=== PATIENT | female | born 2000 | race Caucasian/White ===

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

== ENCOUNTER 2018-02-10 16:50 | Emergency (ER) | payer MEDICAID ==
[~2018-02-10] VITALS: Ht 175.3 cm; Wt 93.0 kg
[~2018-02-10 16:50] MED LIST changes: +PROC-8 PO; +SUMA25TA35 PO
[2018-02-10] MEDS ORDERED: ondansetron/PF 4mg/2ml inj IV ONE (17:20)
[2018-02-10] MEDS ORDERED: normal saline 1000ML IV soln IVB ONE (17:20)
[2018-02-10 17:30] LABS: URINE HCG NEGATIVE (NEG)
[2018-02-10 17:31] LABS: CLARITY,URINE CLEAR (Clear); COLOR,URINE YELLOW (Yellow); PROTEIN,URINE NEGATIVE (Neg); UA COLLECTION TYPE VOIDED
[2018-02-10 17:32] LABS: BASOPHILS % (AUTO) 0.6 % (0-1); EOSINOPHILS % (AUTO) 0.4 % (0-6); HEMATOCRIT 44.9 % (35.0-45.0); LYMPHOCYTES # (AUTO) 2.5 X10'3 (1.1-4.8); LYMPHOCYTES % (AUTO) 39.7 % (21-51); MEAN CORPUSCULAR HEMOGLOBIN 31.8 PG (27.0-31.0); MEAN CORPUSCULAR HGB CONC 33.5 % (33.0-36.5); MEAN CORPUSCULAR VOLUME 95.1 FL (78-98); MONOCYTES # (AUTO) 0.4 X10'3 (0-0.9); NEUTROPHILS # (AUTO) 3.4 X10'3 (1.8-7.7); NEUTROPHILS % (AUTO) 53.3 % (42-75); PLATELET COUNT 374 X10'3 (140-440); RED BLOOD COUNT 4.73 X10'6 (4.20-5.60); RED CELL DISTRIBUTION WIDTH 13.2 % (11.5-14.5); WHITE BLOOD COUNT 6.3 X10'3 (4.5-11.0)
[2018-02-10 17:32] LABS: GLUCOSE, URINE NEGATIVE (Neg); KETONES,URINE NEGATIVE (Neg); LEUKOCYTE ESTERASE ,URINE NEGATIVE (Neg); NITRITES, URINE NEGATIVE (Neg); OCCULT BLOOD,URINE TRACE-INTACT (Neg); UROBILINOGEN,URINE 0.2 E.U/dL (0.2-1.0)
[2018-02-10 17:41] LABS: URINE AMPHETAMINE SCREEN NEGATIVE (Neg); URINE BARBITUATE SCREEN NEGATIVE (Neg); URINE BENZODIAZEPINES SCREEN NEGATIVE (Neg); URINE CANNABINOID SCREEN NEGATIVE (Neg); URINE COCAINE SCREEN NEGATIVE (Neg); URINE METHADONE SCREEN NEGATIVE (Neg); URINE OPIATE SCREEN NEGATIVE (Neg); URINE PHENCYCLIDINE SCREEN NEGATIVE (Neg)
[2018-02-10 17:43] LABS: BACTERIA,URINE 2+ /HPF (Neg); MUCUS STRANDS NONE SEEN /LPF (Neg); RBC,URINE 0-2 /HPF (0-2); SQUAMOUS EPITHELIAL CELL,UR MODERATE /LPF (FEW); WBC,URINE NONE SEEN /HPF (0-4)
[2018-02-10 17:45] LABS: ALANINE AMINOTRANSFERASE 46 U/L (12-78); ALBUMIN 3.6 G/DL (3.4-5.0); ALKALINE PHOSPHATASE 73 IU/L (20-180); ANION GAP 17 (8-16); ASPARTATE AMINO TRANSFERASE 63 U/L (10-37); BILIRUBIN,TOTAL 0.6 MG/DL (0.1-1.0); BLOOD UREA NITROGEN 9 MG/DL (7-18); BUN/CREATININE RATIO 10.8 (6.6-38.0); CALCIUM 7.8 MG/DL (8.5-10.1); CHLORIDE 104 MMOL/L (99-107); CREATININE 0.83 MG/DL (0.40-0.90); GLUCOSE 85 MG/DL (70-104); POTASSIUM 3.7 MMOL/L (3.5-5.1); SODIUM 140 MMOL/L (135-145); TOTAL CARBON DIOXIDE 19.4 MMOL/L (24-32); TOTAL PROTEIN 7.3 G/DL (6.4-8.2); eGFR 89 ML/MIN
--- NOTE | 2018-02-10 17:55 | NUR ---
Poison control contacted, received following recommendations from pharmacist "Robert": Optimize electrolyte levels for prolonged QTC interval by giving 1 gram of magnesium and goal of potasium is = or greater than 4. Repeat EKG in four hours Redraw and eval pts anion gap, electrolytes and liver function in four hours. Cardiac monitoring for next 6 hours and monitor for respiratory depression and tachycardia.
[2018-02-10 17:58] LABS: ETHANOL 0.415 GM/DL (0.0-0.010)
--- NOTE | 2018-02-10 18:08 | NUR ---
Reported recommendations to TI Salas and update ROOPA Molina.
[2018-02-10] MEDS ORDERED: magnesium 2GM in 50ml NS 50 ML IV ONE (18:10)
[2018-02-10] MEDS ORDERED: thiamine 100mg/ml 2ml inj. IV ONE (18:10)
[2018-02-10] MEDS ORDERED: potassium Cl oral solution 20 MEQ/15 ML PO ONE (18:10)
[2018-02-10] MEDS ORDERED: folic acid 1mg/0.2ml inj IV ONE (18:10)
--- NOTE | 2018-02-10 18:25 | NUR ---
TELE-PSYCH CONSULT INITIATED.
[2018-02-10] MEDS ORDERED: famotidine/PF 10 mg/ml inj IV ONE (18:30)
[2018-02-10 18:51] LABS: ACETAMINOPHEN < 2.0 UG/ML (10-30)
--- NOTE | 2018-02-10 18:51 | NUR ---
Telepsych consult in progress at bedside.
[2018-02-10 21:27] LABS: ALANINE AMINOTRANSFERASE 43 U/L (12-78); ALBUMIN 3.2 G/DL (3.4-5.0); ALBUMIN/GLOBULIN RATIO 1.1 (1.1-1.5); ALKALINE PHOSPHATASE 63 IU/L (20-180); ANION GAP 17 (8-16); ASPARTATE AMINO TRANSFERASE 59 U/L (10-37); BILIRUBIN,TOTAL 0.4 MG/DL (0.1-1.0); BLOOD UREA NITROGEN 6 MG/DL (7-18); BUN/CREATININE RATIO 8.7 (6.6-38.0); CALCIUM 7.1 MG/DL (8.5-10.1); CHLORIDE 109 MMOL/L (99-107); CREATININE 0.69 MG/DL (0.40-0.90); GLUCOSE 95 MG/DL (70-104); POTASSIUM 4.8 MMOL/L (3.5-5.1); SODIUM 143 MMOL/L (135-145); TOTAL CARBON DIOXIDE 17.5 MMOL/L (24-32); TOTAL PROTEIN 6.1 G/DL (6.4-8.2); eGFR > 90 ML/MIN
--- NOTE | 2018-02-10 23:45 | NUR ---
MOVED FROM ROOM 16, PLACED IN GREEN GOWN AND ORIENTED TO ROOM.
--- NOTE | 2018-02-11 00:07 | NUR ---
Packet faxed to [facility].
[2018-02-11 05:30] VITALS: BP 126/78
[2018-02-11] MEDS ORDERED: normal saline 1000ML IV soln IVB ONE (06:35)
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
[2018-02-11] MEDS ORDERED: phenobarbital inj 260 MG in normal saline 100ml IV soln 99 ML IV ONE (07:30)
--- NOTE | 2018-02-11 08:50 | NUR ---
Pt feeling a little better post medication and fluids. Continue to monitor.
--- NOTE | 2018-02-11 10:14 | NUR ---
Patient on the phone with her mother. No distress observed.
== END 2018-02-11 14:18 | disposition home or self-care (01) ==
LOC: ER 16:51
DX: T43.222A Poisoning by selective serotonin reuptake inhibitors, intentional self-harm, initial encounter (principal); F10.129 Alcohol abuse with intoxication, unspecified; R45.851 Suicidal ideations; F10.10 Alcohol abuse, uncomplicated; G43.909 Migraine, unspecified, not intractable, without status migrainosus; F41.9 Anxiety disorder, unspecified; F12.90 Cannabis use, unspecified, uncomplicated; F32.9 Major depressive disorder, single episode, unspecified; Z79.899 Other long term (current) drug therapy; Y90.9 Presence of alcohol in blood, level not specified; Y92.89 Other specified places as the place of occurrence of the external cause
CPT/HCPCS: 36415; 80053; 80305; 80320; 80329; 81001; 81025; 84443; 85025; 93005; 96365; 96367; 96375; 99291; J2405; J2560; J3411; J3475; J3490; J7030

== ENCOUNTER 2018-10-20 22:42 | Emergency (ER) | payer MEDICAID ==
[~2018-10-20] VITALS: Ht 175.3 cm; Wt 79.5 kg
--- NOTE | 2018-10-20 22:44 | NUR ---
kristi flores - nataly eli
[2018-10-20 23:08] LABS: BASOPHILS # (AUTO) 0.1 X10'3 (0-0.2); BASOPHILS % (AUTO) 0.7 % (0-1); EOSINOPHILS # (AUTO) 0.1 X10'3 (0-0.9); EOSINOPHILS % (AUTO) 0.7 % (0-6); HEMATOCRIT 41.8 % (35.0-45.0); HEMOGLOBIN 14.4 g/dl (12.0-16.0); LYMPHOCYTES # (AUTO) 3.7 X10'3 (1.1-4.8); LYMPHOCYTES % (AUTO) 26.9 % (21-51); MEAN CORPUSCULAR HEMOGLOBIN 33.4 PG (27.0-31.0); MEAN CORPUSCULAR HGB CONC 34.5 g/dL (33.0-36.5); MEAN CORPUSCULAR VOLUME 96.8 FL (78-98); MEAN PLATELET VOLUME 6.5 FL (7.4-10.4); MONOCYTES # (AUTO) 0.8 X10'3 (0-0.9); MONOCYTES % (AUTO) 6.2 % (2-12); NEUTROPHILS # (AUTO) 8.9 X10'3 (1.8-7.7); NEUTROPHILS % (AUTO) 65.5 % (42-75); PLATELET COUNT 362 X10'3 (140-440); RED BLOOD COUNT 4.32 X10'6 (4.20-5.60); RED CELL DISTRIBUTION WIDTH 13.5 % (11.5-14.5); WHITE BLOOD COUNT 13.6 X10'3 (4.5-11.0)
[2018-10-20 23:13] LABS: COLOR,URINE YELLOW (Yellow); GLUCOSE, URINE NEGATIVE (Neg); KETONES,URINE NEGATIVE (Neg); LEUKOCYTE ESTERASE ,URINE NEGATIVE (Neg); NITRITES, URINE NEGATIVE (Neg); OCCULT BLOOD,URINE NEGATIVE (Neg); PROTEIN,URINE NEGATIVE (Neg); URINE HCG NEGATIVE (NEG); UROBILINOGEN,URINE 0.2 E.U/dL (0.2-1.0)
[2018-10-20 23:18] LABS: CLARITY,URINE CLEAR (Clear); UA COLLECTION TYPE CLN CATCH MIDSTREAM
[2018-10-20 23:20] LABS: ALANINE AMINOTRANSFERASE 61 U/L (12-78); ALBUMIN 3.2 G/DL (3.4-5.0); ALBUMIN/GLOBULIN RATIO 0.7 (1.1-1.5); ALKALINE PHOSPHATASE 110 IU/L (20-180); ANION GAP 16 (8-16); ASPARTATE AMINO TRANSFERASE 57 U/L (10-37); BILIRUBIN,TOTAL 0.2 MG/DL (0.1-1.0); BLOOD UREA NITROGEN 9 MG/DL (7-18); BUN/CREATININE RATIO 9.2 (6.6-38.0); CALCIUM 8.2 MG/DL (8.5-10.1); CHLORIDE 107 MMOL/L (99-107); CREATININE 0.98 MG/DL (0.40-0.90); GLUCOSE 100 MG/DL (70-104); POTASSIUM 3.4 MMOL/L (3.5-5.1); SODIUM 144 MMOL/L (135-145); TOTAL CARBON DIOXIDE 21.4 MMOL/L (24-32); TOTAL PROTEIN 7.7 G/DL (6.4-8.2); eGFR 72 ML/MIN
[2018-10-20 23:22] LABS: ACETAMINOPHEN < 2.0 UG/ML (10-30)
--- NOTE | 2018-10-20 23:22 | NUR ---
PT A CUP OF ICE WATER REQUESTED, PT CALM,QUIET,COOPERATIVE.
[2018-10-20 23:47] LABS: URINE AMPHETAMINE SCREEN NEGATIVE (Neg); URINE BARBITUATE SCREEN NEGATIVE (Neg); URINE BENZODIAZEPINES SCREEN NEGATIVE (Neg); URINE CANNABINOID SCREEN NEGATIVE (Neg); URINE COCAINE SCREEN NEGATIVE (Neg); URINE METHADONE SCREEN NEGATIVE (Neg); URINE OPIATE SCREEN NEGATIVE (Neg); URINE PHENCYCLIDINE SCREEN NEGATIVE (Neg)
--- NOTE | 2018-10-20 23:51 | NUR ---
PT REPORTED NOT BEING ABLE TO BREATHE, PT RR 32. PT COACHED TO BREATHE IN THROUGH NOSE AND OUT MOUTH AND RR REDUCED TO NORMAL RATE. ASKED IF PT TAKES ANYTHING FOR ANXIETY ATTACKS AND PT STATES NO.
--- NOTE | 2018-10-21 00:20 | NUR ---
PT PARENTS ALLOWED TO VISIT FOR 10 MINUTES. PT COOPERATIVE BEFORE, DURING AND AFTER.
--- NOTE | 2018-10-21 02:18 | NUR ---
PT EXPRESSED ANXIETY AND GENERAL RESTLESSNESS. DISCUSSED PT STATUS WITH RIYA WALTERS; NEW ORDER RECEIVED FOR LIBRIUM.
[2018-10-21] MEDS ORDERED: chlordiazePOXIDE 25mg capsule PO ONE (02:20)
--- NOTE | 2018-10-21 06:32 | NUR ---
PT IS SLEEPING ON LEFT SIDE, RESPIRATIONS SPONTANEOUS, EVEN AND UNLABORED, NO S/S OF DISTRESS, DISOMFORT OR AGITATION AT THIS TIME.
--- NOTE | 2018-10-21 08:38 | NUR ---
PT SITTING UP IN BED, PT IS CALM AND COOPERATIVE, PT REPORTS SHE FEEL THIRSTY, GAVE PT A PITCHER OF ICE WATER, DR LIMON INFORMED OF PT RECENT COUGH AND CHESTWALL PAIN, ORDERS TO FOLLOW, WILL UPDATE PT VS.
[2018-10-21] MEDS ORDERED: NO HOME MEDS (08:39)
--- NOTE | 2018-10-21 08:49 | NUR ---
PT REPORTING 10/10 PAIN, RECEIVED VERBAL ORDER FROM DR LIMON 600 MG PO IBUPROFEN ONCE NOW.
[2018-10-21] MEDS ORDERED: ibuprofen 200mg tablet PO ONE (08:50)
[2018-10-21] MEDS ORDERED: thiamine 100mg tablet PO ONE (11:30)
[2018-10-21] MEDS ORDERED: multivitamins, therapeutics tablet PO SCH (11:30)
--- NOTE | 2018-10-21 11:30 | NUR ---
DR BOSSFS INFORMED OF PT 1/ VODKA DAILY DRINKING, NO ETOH WITHDRAW PROTOCOL, VERBAL ORDER FOR MULT VIT AND THIAMINE DAILY
--- NOTE | 2018-10-21 11:33 | NUR ---
PT MOVED FROM BED 15 TO BED 22 BY STUDENT ACCOUNTS MANAGER, CALLED AND GAVE SBAR REPORT TO DARLENE BLAS
--- NOTE | 2018-10-21 11:35 | NUR ---
Made comfortable in Bed 22. Mother at bedside. Presents as shaky and anxious.
--- NOTE | 2018-10-21 13:00 | NUR ---
Served lunch tray. Picked at her food. Stated "This is not what I eat." Mother remains at bedside.
--- NOTE | 2018-10-21 13:30 | NUR ---
Sha from [facility] at bedside to evaluate patient for 5150 criteria.
--- NOTE | 2018-10-21 14:20 | NUR ---
Patient does not meet criteria for 5150 status. In depth discharge plan reviewed with patient and mother.
--- NOTE | 2018-10-21 15:00 | NUR ---
Patient discharged to home ambulatory, with all her personal belongings, accompanied by mother. Will follow-up with AA sponsor, [facility] and locate a primary care provider.
[2018-10-21 17:45] VITALS: BP 130/88
== END 2018-10-21 15:00 | disposition home or self-care (01) ==
LOC: ER 22:42
DX: S41.112A Laceration without foreign body of left upper arm, initial encounter (principal); S71.111A Laceration without foreign body, right thigh, initial encounter; F10.129 Alcohol abuse with intoxication, unspecified; F79 Unspecified intellectual disabilities; G43.909 Migraine, unspecified, not intractable, without status migrainosus; F41.9 Anxiety disorder, unspecified; Z79.899 Other long term (current) drug therapy; X78.8XXA Intentional self-harm by other sharp object, initial encounter; Y93.89 Activity, other specified; Y92.89 Other specified places as the place of occurrence of the external cause; Y99.8 Other external cause status
CPT/HCPCS: 36415; 71045; 80053; 80305; 80320; 80329; 81003; 81025; 85025; 99285

== ENCOUNTER 2019-04-03 14:32 | Emergency (ER) | payer MEDICAID ==
[~2019-04-03] VITALS: Ht 177.8 cm; Wt 118.0 kg
[~2019-04-03 14:32] MED LIST changes: -LEVO1.5T12 PO; +NO HOME MEDS; -PROC-8 PO; -PROCHC RC; -SUMA25TA35 PO
[2019-04-03 16:47] LABS: BASOPHILS % (AUTO) 0.5 % (0-1); EOSINOPHILS % (AUTO) 0.2 % (0-6); HEMATOCRIT 41.4 % (35.0-45.0); HEMOGLOBIN 14.3 g/dl (12.0-16.0); LYMPHOCYTES # (AUTO) 2.5 X10'3 (1.1-4.8); MEAN CORPUSCULAR HEMOGLOBIN 36.1 PG (27.0-31.0); MEAN CORPUSCULAR HGB CONC 34.6 g/dL (33.0-36.5); MEAN CORPUSCULAR VOLUME 104.3 FL (78-98); MEAN PLATELET VOLUME 7.1 FL (7.4-10.4); MONOCYTES # (AUTO) 0.4 X10'3 (0-0.9); MONOCYTES % (AUTO) 5.5 % (2-12); NEUTROPHILS # (AUTO) 4.9 X10'3 (1.8-7.7); NEUTROPHILS % (AUTO) 61.8 % (42-75); PLATELET COUNT 332 X10'3 (140-440); RED BLOOD COUNT 3.97 X10'6 (4.20-5.60); WHITE BLOOD COUNT 7.9 X10'3 (4.5-11.0)
[2019-04-03 16:55] LABS: PARTIAL THROMBOPLASTIN TIME 29 SECONDS (22-32)
[2019-04-03 17:00] LABS: ALANINE AMINOTRANSFERASE 111 U/L (12-78); ALBUMIN 3.8 G/DL (3.4-5.0); ALBUMIN/GLOBULIN RATIO 1.1 (1.1-1.5); ALKALINE PHOSPHATASE 63 IU/L (20-180); ANION GAP 18 (8-16); ASPARTATE AMINO TRANSFERASE 151 U/L (10-37); BILIRUBIN,TOTAL 0.8 MG/DL (0.1-1.0); BLOOD UREA NITROGEN 6 MG/DL (7-18); BUN/CREATININE RATIO 6.9 (6.6-38.0); CALCIUM 8.9 MG/DL (8.5-10.1); CHLORIDE 104 MMOL/L (99-107); CREATININE 0.87 MG/DL (0.40-0.90); GLUCOSE 101 MG/DL (70-104); LIPASE 119 U/L (73-393); MAGNESIUM 2.3 MG/DL (1.5-2.4); POTASSIUM 3.9 MMOL/L (3.5-5.1); SODIUM 140 MMOL/L (135-145); TOTAL CARBON DIOXIDE 18.5 MMOL/L (24-32); TOTAL PROTEIN 7.4 G/DL (6.4-8.2); eGFR 83 ML/MIN
[2019-04-03] MEDS ORDERED: normal saline 1000ML IV soln IVB ONE (17:55)
[2019-04-03 18:32] VITALS: BP 123/80
[2019-04-03] MEDS ORDERED: LORazepam 2 mg/ml vial IV ONE (18:40)
[2019-04-03 18:49] LABS: CLARITY,URINE CLOUDY (Clear); COLOR,URINE STRAW (Yellow); GLUCOSE, URINE NEGATIVE (Neg); KETONES,URINE NEGATIVE (Neg); LEUKOCYTE ESTERASE ,URINE TRACE (Neg); NITRITES, URINE NEGATIVE (Neg); OCCULT BLOOD,URINE LARGE (Neg); PH,URINE 5.5 (4.8-8.0); PROTEIN,URINE NEGATIVE (Neg); URINE HCG NEGATIVE (NEG); UROBILINOGEN,URINE 0.2 E.U/dL (0.2-1.0)
[2019-04-03 18:50] LABS: UA COLLECTION TYPE CLN CATCH MIDSTREAM
[2019-04-03 18:56] LABS: BACTERIA,URINE 1+ /HPF (Neg); RBC,URINE 0-2 /HPF (0-2); SQUAMOUS EPITHELIAL CELL,UR MODERATE /LPF (FEW)
[2019-04-03 19:01] LABS: URINE AMPHETAMINE SCREEN NEGATIVE (Neg); URINE BARBITUATE SCREEN NEGATIVE (Neg); URINE BENZODIAZEPINES SCREEN NEGATIVE (Neg); URINE CANNABINOID SCREEN NEGATIVE (Neg); URINE COCAINE SCREEN NEGATIVE (Neg); URINE METHADONE SCREEN NEGATIVE (Neg); URINE OPIATE SCREEN NEGATIVE (Neg); URINE PHENCYCLIDINE SCREEN NEGATIVE (Neg)
[2019-04-03 19:03] LABS: TROPONIN I < 0.04 NG/ML (0.0-0.05)
[2019-04-03] MEDS ORDERED: ondansetron 4mg rapidly disintigrating tab PO ONE (19:30)
== END 2019-04-03 19:41 | disposition home or self-care (01) ==
LOC: ER 14:33
DX: I47.1 Supraventricular tachycardia (principal); F10.10 Alcohol abuse, uncomplicated; F41.9 Anxiety disorder, unspecified; F32.9 Major depressive disorder, single episode, unspecified; Y90.0 Blood alcohol level of less than 20 mg/100 ml
CPT/HCPCS: 36415; 71045; 80053; 80305; 80320; 81001; 81025; 83690; 83735; 84484; 85025; 85610; 85730; 87088; 93005; 96374; 99285; J2060; J7030

== ENCOUNTER 2019-04-24 23:56 | Emergency (ER) | payer MEDICAID ==
[~2019-04-24] VITALS: Ht 177.8 cm; Wt 77.3 kg
[2019-04-25] MEDS ORDERED: AMOX-422 PO (00:16)
[2019-04-25 00:32] VITALS: BP 131/86
== END 2019-04-25 00:34 | disposition home or self-care (01) ==
LOC: ER 23:57
DX: H66.91 Otitis media, unspecified, right ear (principal); F41.9 Anxiety disorder, unspecified; F32.9 Major depressive disorder, single episode, unspecified; Z79.2 Long term (current) use of antibiotics
CPT/HCPCS: 99283

== ENCOUNTER 2019-06-16 17:55 | Emergency (ER) | payer MEDICAID ==
[~2019-06-16] VITALS: Ht 177.8 cm; Wt 72.7 kg
[2019-06-16] MEDS ORDERED: ondansetron/PF 4mg/2ml inj IV ONE (18:05)
[2019-06-16] MEDS ORDERED: morphine 4 MG/ML inj SYRINge IV ONE (18:05)
[2019-06-16] MEDS ORDERED: ACET-3068 PO (18:36)
[2019-06-16 19:05] VITALS: BP 131/59
== END 2019-06-16 19:07 | disposition home or self-care (01) ==
LOC: ER 17:56
DX: S89.92XA Unspecified injury of left lower leg, initial encounter (principal); G43.909 Migraine, unspecified, not intractable, without status migrainosus; F41.9 Anxiety disorder, unspecified; F32.9 Major depressive disorder, single episode, unspecified; F10.10 Alcohol abuse, uncomplicated; Z79.899 Other long term (current) drug therapy; W01.0XXA Fall on same level from slipping, tripping and stumbling without subsequent striking against object, initial encounter; Y93.89 Activity, other specified; Y92.828 Other wilderness area as the place of occurrence of the external cause; Y99.8 Other external cause status
CPT/HCPCS: 73560; 96374; 96375; 99284; J2270; J2405

== ENCOUNTER 2019-08-28 20:54 | Emergency (ER) | payer MEDICAID ==
[~2019-08-28] VITALS: Ht 177.8 cm; Wt 81.8 kg
--- NOTE | 2019-08-28 21:29 | NUR ---
pt reports new onset of chest pain to the left side going to her back during assessment. ekg ordered. pt additionaly describes weakness as moving up her legs and now at her left hand. pt denies any medical hx. symptoms began 3 days ago.
[2019-08-28 21:33] LABS: BASOPHILS # (AUTO) 0.1 X10'3 (0-0.2); BASOPHILS % (AUTO) 1.3 % (0-1); EOSINOPHILS # (AUTO) 0.2 X10'3 (0-0.9); EOSINOPHILS % (AUTO) 2.5 % (0-6); HEMOGLOBIN 13.4 g/dl (12.0-16.0); LYMPHOCYTES # (AUTO) 1.3 X10'3 (1.1-4.8); LYMPHOCYTES % (AUTO) 22.3 % (21-51); MEAN CORPUSCULAR HEMOGLOBIN 38.3 PG (27.0-31.0); MEAN CORPUSCULAR HGB CONC 33.5 g/dL (33.0-36.5); MEAN CORPUSCULAR VOLUME 114.2 FL (78-98); MEAN PLATELET VOLUME 7.7 FL (7.4-10.4); MONOCYTES # (AUTO) 0.3 X10'3 (0-0.9); MONOCYTES % (AUTO) 4.6 % (2-12); NEUTROPHILS # (AUTO) 4.2 X10'3 (1.8-7.7); NEUTROPHILS % (AUTO) 69.3 % (42-75); PLATELET COUNT 261 X10'3 (140-440); RED BLOOD COUNT 3.51 X10'6 (4.20-5.60); RED CELL DISTRIBUTION WIDTH 18.1 % (11.5-14.5)
[2019-08-28 21:48] LABS: ANISOCYTOSIS 2+; PLATELET ESTIMATE NORMAL
[2019-08-28 21:53] LABS: ALANINE AMINOTRANSFERASE 212 U/L (12-78); ALBUMIN 3.8 G/DL (3.4-5.0); ALBUMIN/GLOBULIN RATIO 0.9 (1.1-1.5); ALKALINE PHOSPHATASE 121 IU/L (46-116); ANION GAP 13 (8-16); ASPARTATE AMINO TRANSFERASE 437 U/L (10-37); BILIRUBIN,TOTAL 3.2 MG/DL (0.1-1.0); BLOOD UREA NITROGEN 3 MG/DL (7-18); BUN/CREATININE RATIO 3.4 (6.6-38.0); CALCIUM 9.3 MG/DL (8.5-10.1); CHLORIDE 102 MMOL/L (99-107); CREATININE 0.89 MG/DL (0.40-0.90); GLUCOSE 109 MG/DL (70-104); LIPASE 344 U/L (73-393); POTASSIUM 3.3 MMOL/L (3.5-5.1); SODIUM 139 MMOL/L (135-145); TOTAL CARBON DIOXIDE 24.5 MMOL/L (24-32); TOTAL PROTEIN 8.2 G/DL (6.4-8.2); eGFR 80 ML/MIN
[2019-08-29 00:33] LABS: CLARITY,URINE CLEAR (Clear); COLOR,URINE YELLOW (Yellow); GLUCOSE, URINE NEGATIVE (Neg); KETONES,URINE NEGATIVE (Neg); LEUKOCYTE ESTERASE ,URINE SMALL (Neg); NITRITES, URINE NEGATIVE (Neg); OCCULT BLOOD,URINE LARGE (Neg); PH,URINE 6.5 (4.8-8.0); PROTEIN,URINE NEGATIVE (Neg)
[2019-08-29 00:36] LABS: UA COLLECTION TYPE CLN CATCH MIDSTREAM
[2019-08-29 00:41] LABS: AMORPHOUS URATES 2+; BACTERIA,URINE 1+ /HPF (Neg); RBC,URINE 0-2 /HPF (0-2); SQUAMOUS EPITHELIAL CELL,UR MODERATE /LPF (FEW); WBC,URINE 0-4 /HPF (0-4)
[2019-08-29 00:50] LABS: URINE HCG NEGATIVE (NEG)
--- NOTE | 2019-08-29 01:39 | NUR ---
Received report from Romelia Smith RN. Dr. Owen reevaluating pt and ordering Tele Neuro.
--- NOTE | 2019-08-29 01:40 | NUR ---
PT DC READY AND UNABLE TO PASS GAIT TEST. WITNESSED BY MD ALISSON REEVALUATED AND ORDERED A NEURO TELE FOR FURTHER ASSESSMENT OF BILATERAL LOWER EXTREMITY WEAKNESS.
--- NOTE | 2019-08-29 01:40 | NUR ---
I HAD THE MD WATCH HOW SHE WALKS. HE ASSESSED HER.
[2019-08-29 01:52] LABS: ETHANOL < 0.010 GM/DL (0.0-0.010)
--- NOTE | 2019-08-29 02:17 | NUR ---
TELE NEURO COMPLETED. FAXED REPORT JUST RECEIVED.
[2019-08-29 02:40] LABS: URINE AMPHETAMINE SCREEN NEGATIVE (Neg); URINE BARBITUATE SCREEN NEGATIVE (Neg); URINE BENZODIAZEPINES SCREEN NEGATIVE (Neg); URINE CANNABINOID SCREEN NEGATIVE (Neg); URINE COCAINE SCREEN NEGATIVE (Neg); URINE METHADONE SCREEN NEGATIVE (Neg); URINE OPIATE SCREEN NEGATIVE (Neg); URINE PHENCYCLIDINE SCREEN NEGATIVE (Neg)
--- NOTE | 2019-08-29 02:51 | NUR ---
DR. WALTERS DISCUSSING PTS CASE POSS ADMISSION WITH DR. IVORY. DECISION MADE TO TRANSFER PT TO HOSPITAL WITH NEURO SERVICE RECOMMENDED BY TELE NEURO.
--- NOTE | 2019-08-29 03:05 | NUR ---
PT WITH STABLE VS AND SCHULTZ PAIN OF 4 OUT OF 10.
[2019-08-29 03:07] VITALS: BP 142/103
--- NOTE | 2019-08-29 05:06 | NUR ---
report given to bola sauer , rn on neuro floor. pt with stable vs. awaiting transport time confirmation.
--- NOTE | 2019-08-29 05:46 | NUR ---
Pt awaiting transport to [facility]. Report has been called.
== END 2019-08-29 06:28 | disposition short-term general hospital (02) ==
LOC: ER 20:55
DX: M62.81 Muscle weakness (generalized) (principal); R42 Dizziness and giddiness; R20.0 Anesthesia of skin; G43.909 Migraine, unspecified, not intractable, without status migrainosus; F41.9 Anxiety disorder, unspecified; F32.9 Major depressive disorder, single episode, unspecified; F10.10 Alcohol abuse, uncomplicated; Y90.0 Blood alcohol level of less than 20 mg/100 ml
CPT/HCPCS: 36415; 80053; 80305; 80320; 81001; 81025; 83690; 84443; 85025; 87088; 93005; 99285

== ENCOUNTER 2019-10-23 18:55 | Emergency (ER) | payer MEDICAID ==
[~2019-10-23] VITALS: Ht 177.8 cm; Wt 90.9 kg
[2019-10-23] MEDS ORDERED: metoclopramide 5 mg/ml inj IV ONE (20:35)
[2019-10-23] MEDS ORDERED: normal saline 1000ML IV soln IVB ONE ×2 (20:35→22:00)
[2019-10-23] MEDS ORDERED: diphenhydrAMINE 50 mg/ml inj IV ONE (20:35)
[2019-10-23 21:07] LABS: ETHANOL 0.411 GM/DL (0.0-0.010)
[2019-10-23 21:38] LABS: BASOPHILS # (AUTO) 0.1 X10'3 (0-0.2); EOSINOPHILS # (AUTO) 0.1 X10'3 (0-0.9); EOSINOPHILS % (AUTO) 0.7 % (0-6); MONOCYTES # (AUTO) 0.3 X10'3 (0-0.9)
[2019-10-23 21:39] LABS: BASOPHILS % (AUTO) 0.9 % (0-1); HEMATOCRIT 44.9 % (35.0-45.0); HEMOGLOBIN 15.3 g/dl (12.0-16.0); LYMPHOCYTES # (AUTO) 4.7 X10'3 (1.1-4.8); LYMPHOCYTES % (AUTO) 62.9 % (21-51); MEAN CORPUSCULAR HEMOGLOBIN 35.7 PG (27.0-31.0); MEAN CORPUSCULAR HGB CONC 34.1 g/dL (33.0-36.5); MEAN CORPUSCULAR VOLUME 104.7 FL (78-98); MEAN PLATELET VOLUME 6.9 FL (7.4-10.4); MONOCYTES % (AUTO) 4.7 % (2-12); NEUTROPHILS # (AUTO) 2.3 X10'3 (1.8-7.7); NEUTROPHILS % (AUTO) 30.8 % (42-75); PLATELET COUNT 458 X10'3 (140-440); RED BLOOD COUNT 4.29 X10'6 (4.20-5.60); RED CELL DISTRIBUTION WIDTH 15.6 % (11.5-14.5); WHITE BLOOD COUNT 7.5 X10'3 (4.5-11.0)
[2019-10-23 21:46] LABS: ALANINE AMINOTRANSFERASE 111 U/L (12-78); ALBUMIN/GLOBULIN RATIO 0.9 (1.1-1.5); ALKALINE PHOSPHATASE 85 IU/L (46-116); ANION GAP 16 (8-16); ASPARTATE AMINO TRANSFERASE 82 U/L (10-37); BILIRUBIN,TOTAL 0.5 MG/DL (0.1-1.0); BLOOD UREA NITROGEN 5 MG/DL (7-18); BUN/CREATININE RATIO 5.8 (6.6-38.0); CALCIUM 8.8 MG/DL (8.5-10.1); CHLORIDE 104 MMOL/L (99-107); CREATININE 0.86 MG/DL (0.40-0.90); GLUCOSE 103 MG/DL (70-104); POTASSIUM 3.6 MMOL/L (3.5-5.1); SODIUM 142 MMOL/L (135-145); TOTAL CARBON DIOXIDE 21.8 MMOL/L (24-32); TOTAL PROTEIN 8.4 G/DL (6.4-8.2); eGFR 83 ML/MIN
[2019-10-23 22:00] LABS: ANISOCYTOSIS 1+; PLATELET ESTIMATE NORMAL; TOTAL CELLS COUNTED 100
[2019-10-23 23:18] LABS: URINE HCG NEGATIVE (NEG)
[2019-10-23 23:19] LABS: CLARITY,URINE SLIGHTLY CLOUDY (Clear); COLOR,URINE YELLOW (Yellow); GLUCOSE, URINE NEGATIVE (Neg); KETONES,URINE NEGATIVE (Neg); LEUKOCYTE ESTERASE ,URINE NEGATIVE (Neg); NITRITES, URINE NEGATIVE (Neg); OCCULT BLOOD,URINE NEGATIVE (Neg); PH,URINE 5.5 (4.8-8.0); PROTEIN,URINE NEGATIVE (Neg); UROBILINOGEN,URINE 0.2 E.U/dL (0.2-1.0)
[2019-10-23 23:20] LABS: UA COLLECTION TYPE CLN CATCH MIDSTREAM
[2019-10-23 23:24] LABS: RBC,URINE NONE SEEN /HPF (0-2); WBC,URINE NONE SEEN /HPF (0-4)
[2019-10-23 23:25] LABS: BACTERIA,URINE FEW /HPF (Neg); SQUAMOUS EPITHELIAL CELL,UR FEW /LPF (FEW)
--- NOTE | 2019-10-23 23:25 | NUR ---
PATIENT WAS ABLE TO AMBULATE TO RESTROOM WITHOUT ASSISTANCE. GAIT WAS STEADY AND CONTROLLED. URINE SAMPLE PROVIDED AT THIS TIME
[2019-10-24 01:26] VITALS: BP 126/100
== END 2019-10-24 01:30 | disposition home or self-care (01) ==
LOC: ER 18:56
DX: F10.129 Alcohol abuse with intoxication, unspecified (principal); R00.2 Palpitations; R06.02 Shortness of breath; G43.909 Migraine, unspecified, not intractable, without status migrainosus; F41.9 Anxiety disorder, unspecified; F32.9 Major depressive disorder, single episode, unspecified; Y90.0 Blood alcohol level of less than 20 mg/100 ml
CPT/HCPCS: 36415; 80053; 80320; 81001; 81025; 82948; 85007; 85025; 93005; 96361; 96374; 96375; 99285; J1200; J2765; J7030

== ENCOUNTER 2020-05-24 22:37 | Emergency (ER) | payer MEDICAID ==
[~2020-05-24] VITALS: Ht 172.7 cm; Wt 104.5 kg
[2020-05-24 22:43] VITALS: BP 131/77
[2020-05-24 23:42] LABS: BASOPHILS % (AUTO) 0.7 % (0-1); EOSINOPHILS # (AUTO) 0.1 X10'3 (0-0.9); EOSINOPHILS % (AUTO) 0.8 % (0-6); HEMATOCRIT 44.3 % (35.0-45.0); HEMOGLOBIN 14.6 g/dl (12.0-16.0); LYMPHOCYTES # (AUTO) 3.3 X10'3 (1.1-4.8); LYMPHOCYTES % (AUTO) 47.9 % (21-51); MEAN CORPUSCULAR HEMOGLOBIN 29.4 PG (27.0-31.0); MEAN CORPUSCULAR HGB CONC 32.9 g/dL (33.0-36.5); MEAN CORPUSCULAR VOLUME 89.5 FL (78-98); MEAN PLATELET VOLUME 6.4 FL (7.4-10.4); MONOCYTES # (AUTO) 0.3 X10'3 (0-0.9); NEUTROPHILS # (AUTO) 3.2 X10'3 (1.8-7.7); NEUTROPHILS % (AUTO) 46.6 % (42-75); PLATELET COUNT 428 X10'3 (140-440); RED BLOOD COUNT 4.95 X10'6 (4.20-5.60); RED CELL DISTRIBUTION WIDTH 14.2 % (11.5-14.5); WHITE BLOOD COUNT 6.9 X10'3 (4.5-11.0)
[2020-05-24 23:56] LABS: ALANINE AMINOTRANSFERASE 38 U/L (12-78); ALBUMIN 3.6 G/DL (3.4-5.0); ALBUMIN/GLOBULIN RATIO 0.9 (1.1-1.5); ALKALINE PHOSPHATASE 98 IU/L (46-116); ANION GAP 15 (8-16); ASPARTATE AMINO TRANSFERASE 39 U/L (10-37); BILIRUBIN,TOTAL 0.3 MG/DL (0.1-1.0); BLOOD UREA NITROGEN 10 MG/DL (7-18); BUN/CREATININE RATIO 13.2 (6.6-38.0); CALCIUM 8.2 MG/DL (8.5-10.1); CHLORIDE 105 MMOL/L (99-107); CREATININE 0.76 MG/DL (0.40-0.90); GLUCOSE 87 MG/DL (70-104); POTASSIUM 3.9 MMOL/L (3.5-5.1); SODIUM 140 MMOL/L (135-145); TOTAL CARBON DIOXIDE 20.5 MMOL/L (24-32); TOTAL PROTEIN 7.6 G/DL (6.4-8.2); eGFR > 90 ML/MIN
[2020-05-24 23:58] LABS: ETHANOL 0.326 GM/DL (0.0-0.010)
[2020-05-25] MEDS ORDERED: ONDA8TAB13 PO (00:48)
[2020-05-25] MEDS ORDERED: GABA-530 PO (00:48)
== END 2020-05-25 01:11 | disposition home or self-care (01) ==
LOC: ER 22:38
DX: F10.129 Alcohol abuse with intoxication, unspecified (principal); F32.9 Major depressive disorder, single episode, unspecified; F41.9 Anxiety disorder, unspecified; G43.909 Migraine, unspecified, not intractable, without status migrainosus; F12.90 Cannabis use, unspecified, uncomplicated; F17.200 Nicotine dependence, unspecified, uncomplicated; R00.0 Tachycardia, unspecified; Y90.9 Presence of alcohol in blood, level not specified
CPT/HCPCS: 36415; 80053; 80320; 85025; 93005; 99284

== ENCOUNTER 2020-05-28 05:56 | Emergency (ER) | payer MEDICAID ==
[~2020-05-28] VITALS: Ht 180.3 cm; Wt 108.8 kg
[~2020-05-28 05:56] MED LIST changes: +GABA-530 PO; +ONDA8TAB13 PO
[2020-05-28 06:14] VITALS: BP 121/81
== END 2020-05-28 07:12 | disposition home or self-care (01) ==
LOC: ER 05:56
DX: Z02.89 Encounter for other administrative examinations (principal); F10.129 Alcohol abuse with intoxication, unspecified; G43.909 Migraine, unspecified, not intractable, without status migrainosus; F41.9 Anxiety disorder, unspecified; F32.9 Major depressive disorder, single episode, unspecified; F12.90 Cannabis use, unspecified, uncomplicated; Z72.89 Other problems related to lifestyle; Z79.899 Other long term (current) drug therapy; Y90.9 Presence of alcohol in blood, level not specified
CPT/HCPCS: 99281

== ENCOUNTER 2020-06-01 11:07 | Emergency (ER) | payer MEDICAID ==
[~2020-06-01] VITALS: Ht 180.3 cm; Wt 112.0 kg
[2020-06-01 11:25] VITALS: BP 124/78
== END 2020-06-01 14:25 | disposition home or self-care (01) ==
LOC: ER 11:08
DX: R42 Dizziness and giddiness (principal); T42.6X5A Adverse effect of other antiepileptic and sedative-hypnotic drugs, initial encounter; R07.89 Other chest pain; G43.909 Migraine, unspecified, not intractable, without status migrainosus; F41.9 Anxiety disorder, unspecified; F32.9 Major depressive disorder, single episode, unspecified; F12.90 Cannabis use, unspecified, uncomplicated; Z72.89 Other problems related to lifestyle; Z79.899 Other long term (current) drug therapy; Y92.89 Other specified places as the place of occurrence of the external cause
CPT/HCPCS: 93005; 99283

== ENCOUNTER 2020-06-28 08:18 | Emergency (ER) | payer MEDICAID ==
[~2020-06-28] VITALS: Ht 180.3 cm; Wt 90.9 kg
[2020-06-28] MEDS ORDERED: normal saline 1000ML IV soln IVB ONE (08:50)
[2020-06-28 09:55] LABS: BASOPHILS # (AUTO) 0.1 X10'3 (0-0.2); BASOPHILS % (AUTO) 0.8 % (0-1); EOSINOPHILS # (AUTO) 0.1 X10'3 (0-0.9); EOSINOPHILS % (AUTO) 1.5 % (0-6); HEMATOCRIT 45.9 % (35.0-45.0); HEMOGLOBIN 15.6 g/dl (12.0-16.0); LYMPHOCYTES # (AUTO) 3.1 X10'3 (1.1-4.8); LYMPHOCYTES % (AUTO) 47.4 % (21-51); MEAN CORPUSCULAR HEMOGLOBIN 30.3 PG (27.0-31.0); MEAN CORPUSCULAR HGB CONC 34.1 g/dL (33.0-36.5); MEAN PLATELET VOLUME 6.6 FL (7.4-10.4); MONOCYTES # (AUTO) 0.3 X10'3 (0-0.9); NEUTROPHILS % (AUTO) 45.3 % (42-75); PLATELET COUNT 448 X10'3 (140-440); RED BLOOD COUNT 5.15 X10'6 (4.20-5.60); RED CELL DISTRIBUTION WIDTH 14.1 % (11.5-14.5); WHITE BLOOD COUNT 6.6 X10'3 (4.5-11.0)
[2020-06-28 10:10] LABS: ALANINE AMINOTRANSFERASE 43 U/L (12-78); ALBUMIN 3.7 G/DL (3.4-5.0); ALBUMIN/GLOBULIN RATIO 0.9 (1.1-1.5); ALKALINE PHOSPHATASE 99 IU/L (46-116); ANION GAP 11 (8-16); ASPARTATE AMINO TRANSFERASE 39 U/L (10-37); BILIRUBIN,TOTAL 0.3 MG/DL (0.1-1.0); BLOOD UREA NITROGEN 10 MG/DL (7-18); BUN/CREATININE RATIO 11.9 (6.6-38.0); CALCIUM 8.5 MG/DL (8.5-10.1); CHLORIDE 106 MMOL/L (99-107); CREATININE 0.84 MG/DL (0.40-0.90); GLUCOSE 88 MG/DL (70-104); SODIUM 145 MMOL/L (135-145); TOTAL CARBON DIOXIDE 28.4 MMOL/L (24-32); eGFR 86 ML/MIN
[2020-06-28 10:13] LABS: ETHANOL 0.338 GM/DL (0.0-0.010)
[2020-06-28 10:53] VITALS: BP 114/70
[2020-06-28 10:53] LABS: URINE HCG NEGATIVE (NEG)
[2020-06-28 10:57] LABS: CLARITY,URINE CLEAR (Clear); COLOR,URINE YELLOW (Yellow); GLUCOSE, URINE NEGATIVE (Neg); KETONES,URINE NEGATIVE (Neg); LEUKOCYTE ESTERASE ,URINE NEGATIVE (Neg); NITRITES, URINE NEGATIVE (Neg); OCCULT BLOOD,URINE NEGATIVE (Neg); PROTEIN,URINE NEGATIVE (Neg); UROBILINOGEN,URINE 0.2 E.U/dL (0.2-1.0)
[2020-06-28 11:00] LABS: URINE AMPHETAMINE SCREEN NEGATIVE (Neg); URINE BARBITUATE SCREEN NEGATIVE (Neg); URINE BENZODIAZEPINES SCREEN NEGATIVE (Neg); URINE CANNABINOID SCREEN NEGATIVE (Neg); URINE COCAINE SCREEN NEGATIVE (Neg); URINE METHADONE SCREEN NEGATIVE (Neg); URINE OPIATE SCREEN NEGATIVE (Neg); URINE PHENCYCLIDINE SCREEN NEGATIVE (Neg)
[2020-06-28 11:06] LABS: UA COLLECTION TYPE CLN CATCH MIDSTREAM
[2020-06-28] MEDS ORDERED: GABA-534 PO (11:40)
== END 2020-06-28 11:47 | disposition home or self-care (01) ==
LOC: ER 08:19
DX: F10.129 Alcohol abuse with intoxication, unspecified (principal); G43.909 Migraine, unspecified, not intractable, without status migrainosus; F41.9 Anxiety disorder, unspecified; F32.9 Major depressive disorder, single episode, unspecified; F12.90 Cannabis use, unspecified, uncomplicated; Z72.89 Other problems related to lifestyle; Z79.899 Other long term (current) drug therapy; Y90.0 Blood alcohol level of less than 20 mg/100 ml
CPT/HCPCS: 36415; 71045; 80053; 80305; 80320; 81003; 81025; 82140; 85025; 93005; 99285; J7030

== ENCOUNTER 2020-07-03 05:46 | Emergency (ER) | payer MEDICAID ==
[~2020-07-03] VITALS: Ht 180.3 cm; Wt 109.1 kg
[~2020-07-03 05:46] MED LIST changes: +GABA-534 PO
[2020-07-03] MEDS ORDERED: LORazepam 1 MG tablet PO PRN (06:55)
--- NOTE | 2020-07-03 07:10 | NUR ---
PT HAD ITCHINESS IN HER LEGS AND FACE. FEELING LIKE THERE ARE BUGS UNDER HER SKIN. PT GETS BLISTERS FROM SCRATCHING. PT STATES HER SKIN IS DRY.
[2020-07-03] MEDS ORDERED: LORA-269 PO (07:58)
[2020-07-03 08:48] VITALS: BP 132/84
== END 2020-07-03 08:50 | disposition home or self-care (01) ==
LOC: ER 05:46
DX: F41.0 Panic disorder [episodic paroxysmal anxiety] (principal); F41.9 Anxiety disorder, unspecified; F32.9 Major depressive disorder, single episode, unspecified; G43.909 Migraine, unspecified, not intractable, without status migrainosus; F12.10 Cannabis abuse, uncomplicated; Z79.899 Other long term (current) drug therapy
CPT/HCPCS: 82948; 93005; 99284

== ENCOUNTER 2021-06-18 07:22 | Emergency (ER) | payer MEDICAID ==
[~2021-06-18] VITALS: Ht 177.8 cm; Wt 100.0 kg
[~2021-06-18 07:22] MED LIST changes: +LORA-269 PO
[2021-06-18 07:30] VITALS: BP 112/91
[2021-06-18 08:25] LABS: EOSINOPHILS # (AUTO) 0.1 X10'3 (0-0.9); EOSINOPHILS % (AUTO) 2.8 % (0-6); HEMATOCRIT 44.1 % (35.0-45.0); LYMPHOCYTES # (AUTO) 0.7 X10'3 (1.1-4.8); LYMPHOCYTES % (AUTO) 18.2 % (21-51); MEAN CORPUSCULAR HEMOGLOBIN 33.9 PG (27.0-31.0); MEAN CORPUSCULAR HGB CONC 34.1 g/dL (33.0-36.5); MEAN CORPUSCULAR VOLUME 99.4 FL (78-98); MEAN PLATELET VOLUME 6.8 FL (7.4-10.4); MONOCYTES # (AUTO) 0.4 X10'3 (0-0.9); MONOCYTES % (AUTO) 10.6 % (2-12); NEUTROPHILS # (AUTO) 2.6 X10'3 (1.8-7.7); NEUTROPHILS % (AUTO) 67.4 % (42-75); PLATELET COUNT 208 X10'3 (140-440); RED BLOOD COUNT 4.43 X10'6 (4.20-5.60); RED CELL DISTRIBUTION WIDTH 17.9 % (11.5-14.5); WHITE BLOOD COUNT 3.9 X10'3 (4.5-11.0)
[2021-06-18 08:59] LABS: ALANINE AMINOTRANSFERASE 226 U/L (12-78); ALBUMIN 4.1 G/DL (3.4-5.0); ALBUMIN/GLOBULIN RATIO 1.1 (1.1-1.5); ALKALINE PHOSPHATASE 108 IU/L (46-116); ANION GAP 17 (8-16); ASPARTATE AMINO TRANSFERASE 508 U/L (10-37); BILIRUBIN,TOTAL 2.1 MG/DL (0.1-1.0); BLOOD UREA NITROGEN 4 MG/DL (7-18); BUN/CREATININE RATIO 4.6 (6.6-38.0); CHLORIDE 102 MMOL/L (99-107); CREATININE 0.87 MG/DL (0.40-0.90); GLUCOSE 69 MG/DL (70-104); LIPASE 169 U/L (73-393); POTASSIUM 4.3 MMOL/L (3.5-5.1); SODIUM 141 MMOL/L (135-145); TOTAL CARBON DIOXIDE 21.7 MMOL/L (24-32); TOTAL PROTEIN 7.9 G/DL (6.4-8.2); eGFR 81 ML/MIN
[2021-06-18] MEDS ORDERED: ondansetron 4mg rapidly disintigrating tab PO ONE (10:00)
[2021-06-18] MEDS ORDERED: LORazepam 1 MG tablet PO ONE (10:00)
[2021-06-18] MEDS ORDERED: PROC-8 PO (10:00)
[2021-06-18] MEDS ORDERED: diazepam 5mg tablet PO ONE (10:00)
[2021-06-18] MEDS ORDERED: CHLO25CA10 PO ×2 (10:00→10:02)
== END 2021-06-18 10:57 | disposition home or self-care (01) ==
LOC: ER 07:23
DX: F10.239 Alcohol dependence with withdrawal, unspecified (principal); K29.20 Alcoholic gastritis without bleeding; R11.10 Vomiting, unspecified; R10.84 Generalized abdominal pain; G43.909 Migraine, unspecified, not intractable, without status migrainosus; F41.9 Anxiety disorder, unspecified; F32.A Depression, unspecified; F12.90 Cannabis use, unspecified, uncomplicated; Z72.89 Other problems related to lifestyle; Z79.899 Other long term (current) drug therapy; Y90.9 Presence of alcohol in blood, level not specified
CPT/HCPCS: 36415; 80053; 83690; 85025; 99284

== ENCOUNTER 2021-11-29 17:51 | Emergency (ER) | payer MEDICAID ==
[~2021-11-29] VITALS: Ht 180.3 cm; Wt 90.9 kg
[~2021-11-29 17:51] MED LIST changes: +CHLO25CA10 PO; +PROC-8 PO
[2021-11-29] MEDS ORDERED: LORazepam 2 mg/ml vial ONE (18:17)
--- NOTE | 2021-11-29 18:18 | NUR ---
Poison control recommendation from [place]. Monitor for DRIVEWAY ATTENDANT depression from Librium, Stimulant effects from adderall, monitor for ortho static hypotension. Does not recommend charcoal at this time, lab tests for aspirin, tylenol, alcohol, EKG. Supportive care for seizures and agitation with Benzo's until at baseline, critical for [address] Silveira at bedside to assess patient and aware of poison control recommendations, patient agitated, getting up and attempting to get out of bed, taking off ECG leads, patient talked down and reoriented by RN and MD, security at bedside for safety. MD orders received (see EMAR).
[2021-11-29] MEDS ORDERED: LORazepam 2 mg/ml vial IV ONE (18:20)
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
[2021-11-29] MEDS ORDERED: ringers solution, lacted 1,000 ML IV ONE ×2 (19:05→21:00)
[2021-11-29 19:09] LABS: BASOPHILS # (AUTO) 0.1 X10'3 (0-0.2); BASOPHILS % (AUTO) 1.4 % (0-1); EOSINOPHILS % (AUTO) 0.5 % (0-6); HEMATOCRIT 38.7 % (35.0-45.0); HEMOGLOBIN 13.1 g/dl (12.0-16.0); LYMPHOCYTES # (AUTO) 1.4 X10'3 (1.1-4.8); LYMPHOCYTES % (AUTO) 28.3 % (21-51); MEAN CORPUSCULAR HEMOGLOBIN 34.1 PG (27.0-31.0); MEAN CORPUSCULAR HGB CONC 33.9 g/dL (33.0-36.5); MEAN CORPUSCULAR VOLUME 100.4 FL (78-98); MONOCYTES # (AUTO) 0.3 X10'3 (0-0.9); MONOCYTES % (AUTO) 5.2 % (2-12); NEUTROPHILS # (AUTO) 3.3 X10'3 (1.8-7.7); NEUTROPHILS % (AUTO) 64.6 % (42-75); PLATELET COUNT 172 X10'3 (140-440); RED BLOOD COUNT 3.86 X10'6 (4.20-5.60); RED CELL DISTRIBUTION WIDTH 17.1 % (11.5-14.5)
[2021-11-29 19:24] LABS: ALANINE AMINOTRANSFERASE 198 U/L (12-78); ALBUMIN 3.4 G/DL (3.4-5.0); ALBUMIN/GLOBULIN RATIO 0.9 (1.1-1.5); ALKALINE PHOSPHATASE 171 IU/L (46-116); ANION GAP 17 (8-16); ASPARTATE AMINO TRANSFERASE 397 U/L (10-37); BLOOD UREA NITROGEN 3 MG/DL (7-18); BUN/CREATININE RATIO 5.6 (6.6-38.0); CALCIUM 8.7 MG/DL (8.5-10.1); CHLORIDE 103 MMOL/L (99-107); CREATININE 0.54 MG/DL (0.40-0.90); GLUCOSE 104 MG/DL (70-104); POTASSIUM 3.8 MMOL/L (3.5-5.1); SODIUM 144 MMOL/L (135-145); TOTAL CARBON DIOXIDE 23.7 MMOL/L (24-32); TOTAL PROTEIN 7.3 G/DL (6.4-8.2); eGFR > 90 ML/MIN
--- NOTE | 2021-11-29 19:28 | NUR ---
pt. denies home meds.
[2021-11-29 19:38] LABS: ETHANOL 0.344 GM/DL (0.0-0.010)
[2021-11-29 19:39] LABS: ACETAMINOPHEN < 2.0 UG/ML (10-30)
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
--- NOTE | 2021-11-29 22:29 | NUR ---
POISION CONTROL RECOMMENDS REPEAT METABOLIC TESTING AND CK LAB. AST AND ALT ARE ELEVATED.
[2021-11-29 22:48] LABS: URINE HCG NEGATIVE (NEG)
[2021-11-29 22:51] LABS: CREATINE KINASE 98 U/L (26-192)
[2021-11-29 23:03] LABS: URINE AMPHETAMINE SCREEN NEGATIVE (Neg); URINE BARBITUATE SCREEN NEGATIVE (Neg); URINE BENZODIAZEPINES SCREEN POSITIVE (Neg); URINE CANNABINOID SCREEN POSITIVE (Neg); URINE COCAINE SCREEN NEGATIVE (Neg); URINE METHADONE SCREEN NEGATIVE (Neg); URINE OPIATE SCREEN NEGATIVE (Neg); URINE PHENCYCLIDINE SCREEN NEGATIVE (Neg)
[2021-11-29] MEDS ORDERED: normal saline 1000ML IV soln IVB ONE (23:25)
[2021-11-30] MEDS ORDERED: LORazepam 1 MG tablet PO ONE (00:05)
[2021-11-30 02:21] VITALS: BP 133/94
== END 2021-11-30 02:23 | disposition home or self-care (01) ==
LOC: ER 17:51
DX: T43.621A Poisoning by amphetamines, accidental (unintentional), initial encounter (principal); F10.920 Alcohol use, unspecified with intoxication, uncomplicated; R10.9 Unspecified abdominal pain; G43.909 Migraine, unspecified, not intractable, without status migrainosus; F31.9 Bipolar disorder, unspecified; Z79.899 Other long term (current) drug therapy; Y92.89 Other specified places as the place of occurrence of the external cause
CPT/HCPCS: 36415; 80053; 80305; 80320; 80329; 81025; 82550; 85025; 96361; 96374; 99285; J2060; J7030; J7120